=== PATIENT | male | born 1995 | race Caucasian/White ===

== ENCOUNTER 2018-06-21 13:22 | Emergency (ER) | payer OTHER ==
[~2018-06-21] VITALS: Ht 175.3 cm; Wt 79.4 kg
[~2018-06-21 13:22] MED LIST: FLA500 PO; LAC PO; XANAX0.5 MG PO
[2018-06-21 13:28] VITALS: BP 117/70; Ht 175.3 cm; Wt 79.4 kg
== END 2018-06-21 14:14 | disposition home or self-care (01) ==
LOC: ED 13:22
DX: T15.02XA Foreign body in cornea, left eye, initial encounter (principal); F41.9 Anxiety disorder, unspecified; W20.8XXA Other cause of strike by thrown, projected or falling object, initial encounter; Y93.89 Activity, other specified; Y92.89 Other specified places as the place of occurrence of the external cause; Y99.0 Civilian activity done for income or pay

== ENCOUNTER 2018-10-06 14:08 | Emergency (ER) | payer OTHER | END 2018-10-06 14:43 | disposition left against medical advice (07) | LOC: ED 14:08 | DX: Z53.21 Procedure and treatment not carried out due to patient leaving prior to being seen by health care provider (principal) ==